=== PATIENT | male | born 1985 | race African-American/Black ===

== ENCOUNTER 2018-06-02 19:37 | Emergency (ER) | payer BC, MEDICAID ==
[~2018-06-02] VITALS: Ht 172.7 cm; Wt 75.0 kg
[2018-06-02 19:58] VITALS: BP 126/73
== END 2018-06-02 22:15 | disposition left against medical advice (07) ==
LOC: ER 19:37
DX: S01.511A Laceration without foreign body of lip, initial encounter (principal); X58.XXXA Exposure to other specified factors, initial encounter; Y93.89 Activity, other specified; Y92.89 Other specified places as the place of occurrence of the external cause; Y99.8 Other external cause status; Z53.21 Procedure and treatment not carried out due to patient leaving prior to being seen by health care provider